=== PATIENT | female | born 1955 | race Caucasian/White ===

== ENCOUNTER 2017-09-11 09:07 | Day surgery (SDC) | payer MEDICARE ==
[2014-02-21 13:24] VITALS: BMI 32.4
[2017-09-11] MEDS ORDERED: Midazolam 2 MG/2 ML VIAL ONE (12:25)
[2017-09-11] MEDS ORDERED: Propofol 10 mg/ml Inj (20 ML) ONE (12:25)
[2017-09-11] MEDS ORDERED: ceFAZolin 1 gm in NS 2 GM/200 ML BAG IVPB ONE (12:28)
[2017-09-11] MEDS: Lidocaine/Epinephrine 1% 1:100000 10 ML IJ ONE ×2 (13:00→13:14)
[2017-09-11] MEDS: Bupivacaine 0.25% Inj(30mL) ONE ×2 (13:00→13:14)
[2017-09-11] MEDS ORDERED: Neostigmine Methylsulfate 3mg/3ml Syringe IV ONE (13:45)
[2017-09-11] MEDS ORDERED: Oxycodone/Acetaminophen 5/325 mg Tab PO PRN (14:20)
[2017-09-11] MEDS ORDERED: HYDROmorphone 0.5 mg/0.5 ml ISec IVP PRN (14:21)
--- NOTE | 2017-09-11 14:27 | PCM.SURG1 ---
Surgeon's Initial Post Op Note - Surgeon's Notes Surgeon: Dr. Garland Fishing Vessel Deckhand: NELLY Putnam; Roselia Srivastava, pGY2 Type of Anesthesia: General Endo Pre-Operative Diagnosis: symptomatic cholelithiasis, cholecystitis Operative Findings: numerous intra-abdominal adhesions, distended gallbladder, see full operative report Post-Operative Diagnosis: same Operation Performed: robotic assisted laparoscopic lysis of adhesions and cholecystectomy Specimen/Specimens Removed: gallbladder Estimated Blood Loss: EBL {In ML}: 10 Date of Surgery/Procedure: 09/11/17 Time of Surgery/Procedure: 13:00
[2017-09-11] MEDS ORDERED: HYDROmorphone 1 mg/ml ISec ONE (14:45)
[2017-09-11 17:55] VITALS: BP 117/70; PULSE 80; RESP 18; TEMP 97; O2SAT 100
--- NOTE | 2017-09-13 07:20 | OP ---
PROCEDURE DATE: 09/11/2017 PREOPERATIVE DIAGNOSES: Cholelithiasis and chronic cholecystitis. POSTOPERATIVE DIAGNOSES: Cholelithiasis and chronic cholecystitis. PROCEDURE DONE: Robotic cholecystectomy. SURGEON: Samuel Garland MD ASSISTANTS: 1. JENNIFER Casillas 2. Roselia Sanders, PGY-2 Resident TYPE OF ANESTHESIA: General endotracheal tube anesthesia. ESTIMATED BLOOD LOSS: Around 10 mL. DRAINS: None. PATHOLOGY: Gallbladder was sent to Pathology. COMPLICATIONS: None. INTRAOPERATIVE FINDINGS: The patient had a chronic cholecystitis and cholelithiasis. DESCRIPTION OF PROCEDURE: On intraoperative steps, this is a 62-year-old female who was diagnosed with chronic cholecystitis and cholelithiasis and the patient was consented for the robotic cholecystectomy, possible open; brought to the OR; placed supine on the operating table after induction of the anesthesia. After induction of anesthesia, a supraumbilical incision was made after incising the skin, subcutaneous tissue, and the fascia. The robotic camera port was placed and pneumo was created. Another 38-mm port was placed and the robot was brought in, camera arm as well as arm 1 and arm 2 was docked and the gallbladder was retracted cranially. Calot's triangle dissection was done. Cystic duct and cystic artery were identified and clipped at 3 places and cut in between 2 clips nearby gallbladder, and gallbladder was dissected free from the gallbladder fossa, taken in an EndoCatch bag, taken out through the umbilical port site and sent off the table for the pathology. There was proper hemostasis in each and every part of the procedure. After proper hemostasis and suction irrigation, the robotic instrument was taken out. All the port was taken out under vision and pneumo was deflated. The umbilical port site was closed in two layers, fascia with 0-Vicryl interrupted suture, skin with a 4-0 Monocryl, and dry sterile dressing was applied. The patient tolerated the procedure well. Count of instruments and gauze was correct. There was no apparent complication. The patient was extubated in the OR, sent to the postanesthesia care unit in stable condition. Samuel Garland MD [facility] # [id number]
== END 2017-09-11 17:58 | disposition home or self-care (01) ==
LOC: C.SDS 09:07
PROVIDERS: ATTEND Surgery Surgical Critical Care
DX: K80.10 Calculus of gallbladder with chronic cholecystitis without obstruction (principal)
CPT/HCPCS: 47562; 88304; J0690; J1170; J2250; J2405; J2704; J2710; J3010; J7030